=== PATIENT | female | born 1985 | race Caucasian/White ===

== ENCOUNTER 2022-04-23 14:06 | Emergency (ER) | payer OTHER, SELFPAY ==
--- NOTE | 2022-04-23 14:26 | PC.NURSE ---
PT HAS NOW DECLINED TO BE SEEN IN THE ED SINCE THERE ARE NO NEUROLOGISTS THAT WORK IN THE ED. I ADVISED THE PT THAT SHE CAN BE EVALUATED BY OUR ED PHYSICIANS AND THEY ARE ABLE TO CONSULT AND REFER NEUROLOGISTS AND NEUROSURGEONS NEEDED BUT PT ADAMANTLY DECLINED TO STAY FOR TRIAGE PROCESS AND ANY PHYSICIAN EVALUATION.
== END 2022-04-23 15:20 | disposition left against medical advice (07) ==
LOC: ANHED 14:34
DX: Z53.21 Procedure and treatment not carried out due to patient leaving prior to being seen by health care provider (principal)
CPT/HCPCS: 99199